=== PATIENT | female | born 1950 | race Caucasian/White ===

== ENCOUNTER 2017-11-11 12:41 | Day surgery (SDC) | payer BC, OTHER ==
[~2017-11-11 12:41] MED LIST: Buffered Lidocaine 0.9% SYRIN* 5 ML/SYR SYRINGE INTRADERM ONE; Famotidine IV* 10 MG/ML 2 ML (20 mg) IV ONE
[2017-11-11] MEDS ORDERED: Clindamycin 900 MG IVPREMIX(* 900 MG/50 ML SDV IV ONE (13:08)
[2017-11-11] MEDS ORDERED: Famotidine IV* 10 MG/ML 2 ML (20 mg) ONE (13:29)
[2017-11-11] MEDS ORDERED: fentaNYL* 50 MCG/ML 2 ML VIAL (100 MCG VIAL) ONE ×2 (15:04→16:55)
[2017-11-11] MEDS ORDERED: Midazolam* 1 MG/ML 2 ML VIAL (2 MG) ONE (15:04)
[2017-11-11] MEDS ORDERED: HYDROcodone/ACETAMIN 5-325 MG* 1 TAB PO PRN (15:36)
[2017-11-11] MEDS ORDERED: HYDROmorphone INJ* 1 MG/ML CARPUJECT SYRINGE IV PRN (15:36)
[2017-11-11] MEDS ORDERED: Naloxone* 0.4 MG/ML 1 ML VIAL IV PRN (15:36)
[2017-11-11] MEDS ORDERED: Bupivacaine 0.25% SDV* 30 ML ONE (15:37)
[2017-11-11] MEDS ORDERED: Propofol* 10 MG/ML 20 ML BTL IV PUSH ONE (16:45)
[2017-11-11] MEDS ORDERED: Lidocaine 2% PF * 5 ML VIAL ONE (16:45)
[2017-11-11] MEDS ORDERED: Ketorolac INJ* 30 MG/ML 1 ML VIAL ONE (16:45)
[2017-11-11] MEDS ORDERED: Ondansetron INJ* 2 MG/ML VIAL ONE (16:45)
[2017-11-11] MEDS ORDERED: Dexamethasone IV* 4 MG/ML 1 ML (4 MG) ONE (16:45)
[2017-11-11] MEDS ORDERED: DiMENhydriNATE IV* 50 MG/ML VIAL ONE (16:45)
[2017-11-11] MEDS ORDERED: HYDROmorphone INJ* 1 MG/ML CARPUJECT SYRINGE ONE (17:24)
[2017-11-11 18:50] VITALS: BP 111/65
--- NOTE | 2017-11-12 05:07 | OP ---
DATE OF OPERATION: 11/11/17 - [facility] DATE OF : 46 SURGEON: Jose Alfonso MD BRIM MOLDER: REAL Palacios. An assistant men's soccer coach was needed for the entirety of the procedure to aid in positioning of the arm and retraction. ANESTHESIOLOGIST: Dr. Ashraf. ANESTHESIA: General. PRE-OP DIAGNOSIS: Right distal radius fracture, right volar Beavers's intraarticular distal radius fracture. POST-OP DIAGNOSIS: Right distal radius fracture, right volar Beavers's intraarticular distal radius fracture. OPERATIVE PROCEDURE: Open reduction and internal fixation of right intraarticular distal radius fracture. ESTIMATED BLOOD LOSS: 10 mL. COMPLICATIONS: None. FINDINGS: As expected, a displaced volar Beavers's fragment. DESCRIPTION OF PROCEDURE: Latha was seen in the preoperative holding area. The correct side, site, and procedure were identified. We came back to the operating room where the arm was prepped and draped in the usual fashion. A time-out was performed. I began by exsanguinating the arm with the Esmarch and the tourniquet was inflated to 250 mmHg. I then made a longitudinal incision over the distal FCR tendon. The FCR tendon sheath was open. The tendon was retracted ulnarly. The subsheath was opened. Pronator quadratus was released radially and jocelyne'd back distally leaving the distal 2 to 3 mm of ligaments intact. The fracture was cleaned of its hematoma. A 10 pounds of traction was applied utilizing the Arthrex hand traction rashid and 10 pound of weight was hung off the end of the hand table. The fracture was reduced. I then brought in my Synthes variable angle distal radius plate and this was pinned into place provisionally. I placed one hole in the oblong screw. I then put a couple of pins in distally and I checked the reduction and plate placement on C-arm. I then filled my distal four screws with the three most ulnar screws being locking and the most radial screw being variable angle locking. I then came proximally and placed two 2.4 screws, one was a cortical screw and one was a locking screw. My screw in the oblong hole was a bit short, so I switched it out for a 14 mm screw. Once I had the plate holding the fracture and stable fixation, I went ahead and took some final fluoroscopic images. I then irrigated out the wound. The pronator was reapproximated with 3-0 Vicryl and skin was closed with 4-0 Monocryl and Steri-Strips. I infiltrated Marcaine into the operative area around the fracture site. I then dressed the wound with 4x4's, sterile Webril and a cock-up wrist splint was applied. Tourniquet was deflated and she was taken to the recovery room in stable condition. [id number]/[facility] #: [id number] AYSE
--- NOTE | 2017-11-12 11:06 | RAD ---
INDICATION: Right wrist surgery. COMPARISON: Comparison is made with a prior outside x-ray study of the right hand and wrist from November 05, 2017. TECHNIQUE: 35 seconds of intermittent fluoroscopic guidance were provided and 4 spot films of the right wrist were obtained in the operating room. FINDINGS: The films demonstrate operative reduction and internal fixation of a comminuted fracture of the distal radius. There is a surgical metallic plate present along the volar aspect of the distal radius spanning the fracture fragments transfixed with multiple screws. IMPRESSION: INTRAOPERATIVE CONTROL FILMS. CPT II Codes: [id number]
== END 2017-11-11 19:15 | disposition home or self-care (01) ==
LOC: OREAST 12:41
PROVIDERS: ATTEND Orthopaedic Surgery Hand Surgery
DX: S52.571A Other intraarticular fracture of lower end of right radius, initial encounter for closed fracture (principal); W10.9XXA Fall (on) (from) unspecified stairs and steps, initial encounter; Y92.9 Unspecified place or not applicable; J30.2 Other seasonal allergic rhinitis
CPT/HCPCS: 76000; C1713; C1776; J1100; J1170; J1240; J1885; J2250; J2405; J2704; J3010